=== PATIENT | male | born 1980 | race Caucasian/White ===

== ENCOUNTER → 2021-04-27 10:33 | Outpatient (CLI) | payer OTHER, SELFPAY ==
[2021-04-28 02:02] LABS: SARS-CoV-2 RNA PCR Positive
== END ==
PROVIDERS: PCP Family Medicine; Visit Provider Family Medicine
DX: U07.1 COVID-19 (principal); J06.9 Acute upper respiratory infection, unspecified
CPT/HCPCS: C9803; U0003; U0005

== ENCOUNTER 2024-05-09 11:02 | Emergency (ER) | payer OTHER, SELFPAY ==
[2024-05-09 11:26] VITALS: BP 129/83; PULSE 100; RESP 18; TEMP 36.4; O2SAT 99
--- NOTE | 2024-05-09 11:52 | ED_ITS ---
HPI - URI/Sore Throat General Chief Complaint: Upper Respiratory Infection Stated Complaint: cold symptoms Time Seen by Provider: 05/09/24 11:53 Source: patient, RN notes reviewed and old records reviewed Mode of arrival: ambulatory Limitations: no limitations History of Present Illness HPI Narrative: Patient presents with 4 day history of flu like symptoms. He reports low- grade fever, headaches, body aches, slight cough, sore throat. He does report that he has had same symptoms when he has been diagnosed with strep throat in the past. He has been taking [id number]-zzo-ardigrp medications for his symptoms with good relief. Multiple sick household members. Related Data Home Medications ?Medication ?Instructions ?Recorded ?Confirmed ?Last Taken ?Type No Home Medications 05/09/24 05/09/24 Unknown History Allergies Allergy/AdvReac Type Severity Reaction Status Date / Time No Known Allergies Allergy Verified 05/09/24 11:56 Review of Systems Review of Systems: All systems reviewed & are unremarkable except as noted in HPI and below Constitutional: Constitutional: Reports no additional constitutional complaints, Reports fever(s), Reports headache(s) and Reports lethargy ENT: Reports system reviewed and no additional complaints, except as documented, Reports nasal congestion and Reports sore throat Cardiovascular: Cardiovascular: Reports no additional cardiovascular complaints Respiratory: Respiratory: Reports no additional respiratory complaints Gastrointestinal: Gastrointestinal: Reports no additional gastrointestinal complaints PMFSH Comments At the time of my signature, I reviewed and agree with the nursing past medical, surgical, social, and family history. There is no relevant family history pertinent to the patient complaint. Exam Const: General: cooperative, no acute distress, alert and awake Orientation/consciousness: oriented to person, oriented to place and oriented to time HENMT: Head: normal to inspection Throat: posterior oropharynx abnormal erythema Resp: Effort & Inspection: normal respiratory effort and able to speak in complete sentences Auscultation: clear to auscultation bilaterally, no crackles, no rales, no rhonchi and no wheezes Cardio: Palpation: normal PMI Rate: regular rate Rhythm: regular rhythm Heart sounds: S1 normal heart sound present and S2 normal heart sound present Neuro: General: oriented to person, oriented to place and oriented to time Cranial nerves: Yes CN's II-XII intact bilaterally Psych: Appearance: grossly normal Thought process: Normal thought process present Insight: Good insight present (Psych) Judgement: Good judgement present (Psych) Course Course Level of Care: Express Care Visit Vital Signs Vital signs: Vital Signs Temperature 97.6 F 05/09/24 11:26 Pulse Rate 100 05/09/24 11:26 Respiratory Rate 18 05/09/24 11:26 Blood Pressure 129/83 05/09/24 11:26 Pulse Oximetry 99 05/09/24 11:26 Oxygen Delivery Room Air 05/09/24 11:26 Temperature 97.6 F 05/09/24 11:26 Pulse Rate 100 05/09/24 11:26 Respiratory Rate 18 05/09/24 11:26 Blood Pressure 129/83 05/09/24 11:26 Pulse Oximetry 99 05/09/24 11:26 Oxygen Delivery Room Air 05/09/24 11:26 Reviewed MDM - URI/Sore Throat MDM Narrative Medical decision making narrative: negative COVID, negative strep, culture pending. Positive flu. Nontoxic- appearing patient. Stable for discharge home with [id number] remedies Discharge instructions reviewed with patient, as well as provided in writing per nursing staff. The instructions also include specific and strict return/GO TO THE ER as well as f/u information. All questions have been answered, and the patient deny any further questions with discharge and discharge plan. Some parts of this dictation were generated by voice recognition software and may contain typographical and/or grammatical inaccuracies. Differential Diagnosis Differential diagnosis: Likely upper respiratory infection, otitis media, viral infection, influenza and pharyngitis Medical Records Attestation: I reviewed the patient's medical records. Lab Data Attestation: I reviewed the patient's lab results. Discharge Plan Discharge Clinical Impression: Influenza Patient Disposition: Home, Self-Care Condition: Stable Instructions: Antibiotic Form, Influenza (ED) Additional Instructions: take medications as prescribed. Follow with primary care provider. Emergency department for new or worse symptoms. Continue to treat her symptoms with [id number] remedies, follow package instruction Patient Language: Greek Prescriptions: No Action No Home Medications Follow-up/Referrals: Jose Blake MD [Primary Care Provider] - 2 Weeks Stand Alone Forms: Work/School Release IP Time of Disposition: 12:17
[2024-05-09 12:21] LABS: EDCOVIDSCREEN Negative (Negative); EDINFLUASCREEN Positive (Negative); EDINFLUBSCREEN Negative (Negative); EDSTREPNEGPOS1 Negative (Negative)
== END 2024-05-09 12:22 | disposition home or self-care (01) ==
PROVIDERS: Emergency Provider Nurse Practitioner Family; PCP Family Medicine
DX: J11.1 Influenza due to unidentified influenza virus with other respiratory manifestations (principal); Z20.822 Contact with and (suspected) exposure to COVID-19
CPT/HCPCS: 87081; 87426; 87804; 87880; 99203; G0463